=== PATIENT | male | born 1975 | race Caucasian/White ===

== ENCOUNTER 2017-01-15 12:27 | Day surgery (SDC) | payer BC ==
[~2017-01-15] VITALS: Ht 188 cm; Wt 106.4 kg
[~2017-01-15 12:27] MED LIST: CEFAZOLIN 1,000 MG ONE; DEXAMETHASONE 4 MG/ML, 1ML ONE; FENTANYL PF 250 MCG/5ML ONE; GLYCOPYRROLATE 0.2MG/1ML, 5ML ONE; HYDR-882 PO; IBUP-1223 PO; MIDAZOLAM 1 MG/ML, 2ML ONE; NEOSTIGMINE 1 MG/ML, 10ML ONE; ONDANSETRON 2MG/ML, 2ML ONE; PROPOFOL 10 MG/ML, 20ML ONE; ROCURONIUM 10 MG/ML ONE; SUCCINYLCHOLINE 20 MG/ML, 10ML ONE
[2017-01-15] MEDS ORDERED: BUPIVACAINE/PF 0.25% ONE (12:38)
[2017-01-15 13:04] VITALS: BP 149/96
[2017-01-15] MEDS ORDERED: LACTATED RINGERS 1,000 ML IV SCH (13:19)
[2017-01-15] MEDS ORDERED: hydrALAzine 20 MG/ML, 1ML ONE (13:33)
[2017-01-15] MEDS ORDERED: BUPIVACAINE/PF-EPI 0.25% 1:200K ONE (14:30)
[2017-01-15] MEDS ORDERED: LIDOCAINE/PF 1%, 30ML ONE (14:31)
[2017-01-15] MEDS ORDERED: EPINEPHRINE 1 MG/ML, 1ML ONE (14:31)
[2017-01-15] MEDS ORDERED: PHENYLEPHRINE 10 MG/ML ONE (14:46)
[2017-01-15] MEDS ORDERED: CLINDAMYCIN 150 MG/ML, 6ML ONE (14:58)
[2017-01-15] MEDS ORDERED: MIDAZOLAM 1 MG/ML, 2ML IV PRN (15:30)
[2017-01-15] MEDS ORDERED: ONDANSETRON 2MG/ML, 2ML IVPush PRN (15:30)
[2017-01-15] MEDS ORDERED: ACETAMINOPHEN 325 MG TABLET PO PRN (15:30)
[2017-01-15] MEDS ORDERED: HYDROcodone/APAP 7.5-325MG/15ML UDC PO PRN (15:30)
[2017-01-15] MEDS ORDERED: FENTANYL PF 100 MCG/2ML IV PRN (15:30)
[2017-01-15] MEDS ORDERED: HYDROmorphone 1 MG/ML, 1ML IV PRN (15:30)
[2017-01-15] MEDS ORDERED: OXYcodone 5 MG/5 ML ORAL.SOL UDC PO PRN (15:30)
[2017-01-15] MEDS ORDERED: MEPERIDINE/PF 25MG/0.5ML ONE (16:16)
[2017-01-15] MEDS ORDERED: MEPERIDINE/PF 25MG/0.5ML IVPush PRN (16:30)
[2017-01-15] MEDS ORDERED: ACETAMINOPHEN 650 MG/20.3 ML UDC ONE (16:30)
[2017-01-15] MEDS ORDERED: OXYcodone 5 MG/5 ML ORAL.SOL UDC ONE (16:30)
[2017-01-16] MEDS ORDERED: HYDROmorphone 1 MG/ML, 1ML ONE (09:47)
== END 2017-01-15 18:06 ==
LOC: OUT 12:27
PROVIDERS: ATTEND Orthopaedic Surgery
DX: S43.432A Superior glenoid labrum lesion of left shoulder, initial encounter (principal); M65.812 Other synovitis and tenosynovitis, left shoulder; M75.42 Impingement syndrome of left shoulder; M75.52 Bursitis of left shoulder; M19.012 Primary osteoarthritis, left shoulder; X58.XXXA Exposure to other specified factors, initial encounter; Y93.89 Activity, other specified; Y92.89 Other specified places as the place of occurrence of the external cause; Y99.8 Other external cause status
CPT/HCPCS: 23430; 29820; 29822; 29826; C1713; J0171; J0330; J0360; J0690; J1100; J2175; J2250; J2370; J2405; J2704; J2710; J3010; J3490; J7120; J1170